=== PATIENT | male | born 1990 | race African-American/Black ===

== ENCOUNTER 2016-11-12 18:08 | Emergency (ER) | payer SELFPAY ==
[~2016-11-12] VITALS: Ht 180.3 cm; Wt 77.1 kg
[2016-11-12 18:08] VITALS: BP 141/90
[2016-11-12] MEDS ORDERED: DERMABOND TOPICAL SKIN ADHESIVE TOP ONE (19:15)
== END 2016-11-12 19:40 | disposition home or self-care (01) ==
LOC: M ED 19:09
DX: S01.01XA Laceration without foreign body of scalp, initial encounter (principal); W50.0XXA Accidental hit or strike by another person, initial encounter; Y92.830 Public park as the place of occurrence of the external cause; Y93.67 Activity, basketball; Y99.8 Other external cause status

== ENCOUNTER 2019-01-01 07:49 | Emergency (ER) | payer OTHER, SELFPAY ==
[~2019-01-01] VITALS: Ht 180.3 cm; Wt 86.8 kg
[2019-01-01] MEDS ORDERED: FLON1SPR NARES (07:57)
[2019-01-01] MEDS ORDERED: VENTAER INH (07:57)
[2019-01-01] MEDS ORDERED: SING10TA32 PO ×2 (07:57→08:17)
[2019-01-01] MEDS ORDERED: BENZ200C70 PO (08:17)
[2019-01-01] MEDS ORDERED: AUGM875T28 PO (08:17)
[2019-01-01] MEDS ORDERED: AFRI0.058 (08:17)
[2019-01-01] MEDS ORDERED: ALBU17IN2 INH (08:17)
[2019-01-01 08:43] VITALS: BP 136/78
== END 2019-01-01 08:51 | disposition home or self-care (01) ==
LOC: M ED 07:49
DX: J06.9 Acute upper respiratory infection, unspecified (principal); J30.2 Other seasonal allergic rhinitis; Z76.0 Encounter for issue of repeat prescription; J45.909 Unspecified asthma, uncomplicated; Z79.899 Other long term (current) drug therapy

== ENCOUNTER → 2021-01-31 | Outpatient (CLI) | payer OTHER ==
[~2021-01-31] MED LIST: AFRI0.058; AUGM875T28 PO; BENZ200C70 PO; FLON1SPR NARES; PROV108A INH; SING10TA32 PO; VENTAER INH
[2021-01-31 18:34] LABS: HIV 1&2 SCREEN CENTAUR NEGATIVE (NEGATIVE)
[2021-01-31 19:23] LABS: GC DNA AMPLIFICATION NEGATIVE (NEGATIVE)
== END ==
LOC: M LAB 15:10
PROVIDERS: ATTEND Family Medicine
DX: Z11.3 Encounter for screening for infections with a predominantly sexual mode of transmission (principal)

== ENCOUNTER 2021-02-07 20:42 | Emergency (ER) | payer OTHER ==
[~2021-02-07] VITALS: Ht 180.3 cm; Wt 81.8 kg
--- NOTE | 2021-02-07 22:09 | REPVR ---
PROCEDURE INFORMATION: Exam: XR Right Hand Exam date and time: 02/07/2021 9:11 PM Age: 30 years old Clinical indication: Pain; Hand; Right; Additional info: Fell hitting hand on wall TECHNIQUE: Imaging protocol: XR Right hand. Views: 3 or more views. COMPARISON: No relevant prior studies available. FINDINGS: Bones/joints: Bony structures are otherwise aligned normally. Degree of osseous mineralization is age-appropriate. Acute intra-articular fracture involving the base of the thumb metacarpal, ulnar aspect. No concerning osseous lesion. Joint spaces of the hand are well-maintained. Soft tissues: Soft tissue swelling at the base of the thumb. No evidence of soft tissue laceration or opaque foreign body. IMPRESSION: Acute comminuted intra-articular fracture through the base of the thumb metacarpal with overlying soft tissue swelling Electronically signed by: Adalid Han On 02/07/2021 22:09:09 PM
[2021-02-08] MEDS ORDERED: BOOSTRIX/ADACEL VACCINE (DIPHTH/PERTUSS/ACELL/TETANUS) 0.5ML SYR IM ONE (01:25)
[2021-02-08 01:58] VITALS: BP 159/84
== END 2021-02-08 02:10 | disposition home or self-care (01) ==
LOC: M ED 20:42
DX: S62.291A Other fracture of first metacarpal bone, right hand, initial encounter for closed fracture (principal); S80.211A Abrasion, right knee, initial encounter; W01.198A Fall on same level from slipping, tripping and stumbling with subsequent striking against other object, initial encounter; Y92.099 Unspecified place in other non-institutional residence as the place of occurrence of the external cause; Y93.9 Activity, unspecified; Y99.9 Unspecified external cause status; I10 Essential (primary) hypertension

== ENCOUNTER → 2021-04-07 | Outpatient (REF) | payer OTHER ==
[2021-04-07 14:02] LABS: SEMEN APPEARANCE OPAQUE (OPAQUE); SEMEN VISCOSITY LIQUID (LIQUID); SEMEN VOLUME 2.5 ml (2.0-5.0)
[2021-04-07 14:04] LABS: SPERM CONCENTRATION 89.2 M/ml (>=15.0); WBC CONCENTRATION <=1 M/ml (<=1 M/ml)
== END ==
LOC: M SMT 13:57
PROVIDERS: ATTEND Nurse Practitioner Family
DX: N46.9 Male infertility, unspecified (principal)

== ENCOUNTER → 2021-11-19 | Outpatient (REF) | payer OTHER ==
[2021-11-19 19:13] LABS: GC DNA AMPLIFICATION NEGATIVE (NEGATIVE)
== END ==
LOC: M LAB REF 17:10
PROVIDERS: ATTEND Physician Assistant Medical
DX: R30.0 Dysuria (principal)

== ENCOUNTER 2022-12-29 16:48 | Emergency (ER) | payer OTHER ==
[~2022-12-29] VITALS: Ht 180.3 cm; Wt 76.2 kg
[~2022-12-29 16:48] MED LIST changes: -AFRI0.058; +ALBU6.7H6 INH; +MONT-5 PO; +OXYM15SP2; -PROV108A INH; -SING10TA32 PO
[2022-12-29] MEDS ORDERED: IPRATROPIUM 0.5MG/ALBUTEROL 2.5MG INH SOL UD 3ML (DUONEB) NEB ONE (19:30)
[2022-12-29] MEDS ORDERED: predniSONE 20 MG TAB PO ONE (19:30)
[2022-12-29 19:50] LABS: RSV AMPLIFICATION NEGATIVE (NEGATIVE)
[2022-12-29] MEDS ORDERED: CETI10CA2 PO (21:13)
[2022-12-29] MEDS ORDERED: ALBU6.7H6 INH (21:13)
[2022-12-29] MEDS ORDERED: PRED20TA PO ×2 (21:13→21:18)
[2022-12-29 21:19] VITALS: BP 128/76; TEMP 98; O2SAT 100
== END 2022-12-29 21:22 | disposition home or self-care (01) ==
LOC: M ED 16:48
DX: J45.901 Unspecified asthma with (acute) exacerbation (principal); Z87.891 Personal history of nicotine dependence; Z91.013 Allergy to seafood
CPT/HCPCS: 71046; 87631; 94640; 99283; J7512

== ENCOUNTER 2023-01-16 05:21 | Emergency (ER) | payer OTHER ==
[~2023-01-16] VITALS: Ht 180.3 cm; Wt 75.8 kg
[~2023-01-16 05:21] MED LIST changes: +CETI10CA2 PO; +PRED20TA PO
[2023-01-16] MEDS ORDERED: ALBUTEROL SULFATE 2.5MG/0.5ML INH NEB SOLN INH ONE (05:40)
[2023-01-16] MEDS ORDERED: IPRATROPIUM 0.02% SOLN 0.5MG 2.5ML NEB INH ONE (05:40)
[2023-01-16] MEDS ORDERED: methylPREDNISolone 125MG 2ML VIAL IV ONE (05:40)
[2023-01-16 06:14] LABS: ABG BASE EXCESS -0.2 (-2.0-2.0); ABG HCO3 25.2 MMOL/L (22.0-26.0); ABG O2 SATURATION 98.6 % (95.0-99.0); ABG PARTIAL PRESSURE CO2 43.7 mmHg (35.0-45.0); ABG PARTIAL PRESSURE O2 128.8 mmHg (75.0-100.0); ABG STANDARD HCO3 24.4 MMOL/L. (22.0-26.0); ABG TOTAL CO2 26.6 MMOL/L (22.0-29.0); ABG pH (ARTERIAL) 7.379 UNITS (7.350-7.450)
[2023-01-16 07:00] VITALS: TEMP 97.6
[2023-01-16] MEDS ORDERED: PRED20TA PO (08:54)
[2023-01-16 09:04] VITALS: BP 131/74; O2SAT 96
== END 2023-01-16 09:10 | disposition home or self-care (01) ==
LOC: M ED 05:21
DX: J45.901 Unspecified asthma with (acute) exacerbation (principal); Z91.013 Allergy to seafood
CPT/HCPCS: 36600; 71045; 82803; 87486; 87581; 87633; 87798; 96374; 99284; J2930

== ENCOUNTER 2023-04-09 02:40 | Emergency (ER) | payer OTHER ==
[2023-04-09 02:41] VITALS: TEMP 97.3
[2023-04-09] MEDS: IPRATROPIUM 0.5MG/ALBUTEROL 2.5MG INH SOL UD 3ML (DUONEB) NEB SCH ×2 (03:19→03:20)
[2023-04-09] MEDS ORDERED: ALBUTEROL 90 MCG/ACT 8GM HFA INHALER INH ONE (03:45)
[2023-04-09] MEDS ORDERED: dexAMETHasone 20MG/5ML VIAL IV ONE (03:45)
[2023-04-09] MEDS ORDERED: PRED20TA PO (03:53)
[2023-04-09 04:59] VITALS: BP 139/88; O2SAT 98
== END 2023-04-09 05:02 | disposition home or self-care (01) ==
LOC: M ED 02:40
DX: J45.901 Unspecified asthma with (acute) exacerbation (principal); F10.10 Alcohol abuse, uncomplicated; Z79.52 Long term (current) use of systemic steroids; Z79.899 Other long term (current) drug therapy
CPT/HCPCS: 94640; 96374; 99284; J1100

== ENCOUNTER → 2023-06-01 | Outpatient (REF) | payer OTHER ==
[2023-06-01 12:49] LABS: BASO % 0.6 % (0.0-1.0); EOS # 0.2 10^3/uL (0.0-0.5); EOS % 5.5 % (0.0-3.0); HEMATOCRIT 46.7 % (42.0-52.0); HEMOGLOBIN 15.3 g/dl (13.5-17.5); LYMPH # 1.3 10^3/uL (1.5-5.0); LYMPH % 37.2 % (24.0-44.0); MEAN CORPUSCULAR HEMOGLOBIN 29.4 pg (27.0-33.0); MEAN CORPUSCULAR HGB CONC 32.8 g/dl (32.0-36.5); MEAN CORPUSCULAR VOLUME 89.6 fl (80.0-96.0); MONO # 0.4 10^3/uL (0.0-0.8); MONO % 10.8 % (2.0-8.0); NEUTROPHILS # 1.6 10^3/uL (1.5-8.5); NEUTROPHILS % 45.9 % (36.0-66.0); PLATELET COUNT, AUTOMATED 171 10^3/uL (150-450); RED BLOOD COUNT 5.21 10^6/uL (4.30-6.10); WHITE BLOOD COUNT 3.4 10^3/uL (4.0-10.0)
[2023-06-01 12:57] LABS: ALBUMIN 3.8 G/DL (3.2-5.2); ALKALINE PHOSPHATASE 65 U/L (46-116); ALT/SGPT 101 U/L (7.0-40); AST/SGOT 47 U/L (<34); BILIRUBIN,TOTAL 1.4 MG/DL (0.3-1.2); BLOOD UREA NITROGEN 16 MG/DL (9-23); CALCIUM LEVEL 9.2 MG/DL (8.5-10.1); CARBON DIOXIDE LEVEL 32 MMOL/L (20-31); CHLORIDE LEVEL 104 MMOL/L (98-107); CHOLESTEROL LEVEL 205 MG/DL (<200); CHOLESTEROL RISK RATIO 2.77 (<5); CREATININE FOR GFR 1.13 MG/DL (0.70-1.30); GLOMERULAR FILTRATION RATE > 60.0 (>60); GLUCOSE, FASTING 106 MG/DL (60-100); HDL CHOLESTEROL 73.9 MG/DL (>40); LDL CHOLESTEROL 110.1 MG/DL (<100); NON-HDL-C 131.1 MG/DL; POTASSIUM SERUM 4.3 MMOL/L (3.5-5.1); SODIUM LEVEL 140 MMOL/L (136-145); TRIGLYCERIDES LEVEL 105 MG/DL (<150)
[2023-06-01 12:59] LABS: THYROID STIMULATING HORMONE 1.558 uIU/ML (0.55-4.78)
[2023-06-01 13:01] LABS: TOTAL 25(OH) VITAMIN D 15.6 NG/ML (20.0-100.0)
[2023-06-01 13:21] LABS: HEMOGLOBIN A1c 5.2 % (4.0-6.0)
== END ==
LOC: M LAB REF 11:46
PROVIDERS: ATTEND Nurse Practitioner Family
DX: Z13.228 Encounter for screening for other metabolic disorders (principal)

== ENCOUNTER 2023-12-05 16:05 | Emergency (ER) | payer OTHER ==
[~2023-12-05] VITALS: Ht 180.3 cm; Wt 85.2 kg
[2023-12-05] MEDS: methylPREDNISolone 125MG 2ML VIAL IV ONE (18:27)
[2023-12-05] MEDS: MAG SULF 1GM/100ML (MAG RUN) 1 GM in IV 1 EA IV SCH (18:27)
[2023-12-05 18:48] LABS: BASO # 0.1 10^3/uL (0.0-0.2); BASO % 0.8 % (0.0-1.0); EOS # 0.7 10^3/uL (0.0-0.5); EOS % 10.9 % (0.0-3.0); HEMATOCRIT 48.6 % (42.0-52.0); HEMOGLOBIN 16.5 g/dl (13.5-17.5); LYMPH # 1.7 10^3/uL (1.5-5.0); LYMPH % 28.8 % (24.0-44.0); MEAN CORPUSCULAR HEMOGLOBIN 30.4 pg (27.0-33.0); MEAN CORPUSCULAR VOLUME 89.5 fl (80.0-96.0); MONO # 0.4 10^3/uL (0.0-0.8); MONO % 6.4 % (2.0-8.0); NEUTROPHILS # 3.2 10^3/uL (1.5-8.5); NEUTROPHILS % 53.1 % (36.0-66.0); PLATELET COUNT, AUTOMATED 224 10^3/uL (150-450); RED BLOOD COUNT 5.43 10^6/uL (4.30-6.10); WHITE BLOOD COUNT 6.1 10^3/uL (4.0-10.0)
[2023-12-05 19:06] LABS: BLOOD UREA NITROGEN 14 MG/DL (9-23); CALCIUM LEVEL 9.6 MG/DL (8.5-10.1); CARBON DIOXIDE LEVEL 30 MMOL/L (20-31); CHLORIDE LEVEL 103 MMOL/L (98-107); CREATININE FOR GFR 1.12 MG/DL (0.70-1.30); GLOMERULAR FILTRATION RATE > 60.0 (>60); GLUCOSE, FASTING 84 MG/DL (60-100); POTASSIUM SERUM 4.2 MMOL/L (3.5-5.1); SODIUM LEVEL 138 MMOL/L (136-145)
[2023-12-05] MEDS: IPRATROPIUM 0.5MG/ALBUTEROL 2.5MG INH SOL UD 3ML (DUONEB) NEB ONE (20:09)
[2023-12-05] MEDS ORDERED: ISOVUE-370 76% 100ML VIAL As Ordered ONE (20:29)
[2023-12-05 21:32] LABS: CK-MB VALUE MASS 1.5 NG/ML (<3.6)
[2023-12-05 21:36] LABS: CPK CREATINE PHOSPHOKINASE 286 U/L (46-171); MB/CK RELATIVE INDEX 0.52 (< OR =4)
[2023-12-05] MEDS ORDERED: VENTAER INH (21:43)
[2023-12-05] MEDS ORDERED: PRED20TA PO (21:43)
[2023-12-05 21:50] VITALS: BP 139/73; TEMP 97.8; O2SAT 95
== END 2023-12-05 21:51 | disposition home or self-care (01) ==
LOC: M ED 16:05
DX: J45.901 Unspecified asthma with (acute) exacerbation (principal); I45.19 Other right bundle-branch block; Z91.013 Allergy to seafood; Z79.52 Long term (current) use of systemic steroids
CPT/HCPCS: 71046; 71275; 80048; 82550; 82553; 84484; 85025; 87486; 87581; 87633; 87798; 93005; 94640; 96374; 96375; 99284; J2919; J3475; Q9967

== ENCOUNTER → 2024-09-15 | Outpatient (REF) | payer OTHER ==
[2024-09-15 18:11] LABS: ALBUMIN 3.8 G/DL (3.2-5.2); ALKALINE PHOSPHATASE 68 U/L (40-129); ALT/SGPT 28 U/L (7.0-40); AST/SGOT 26 U/L (<34); BILIRUBIN,TOTAL 1.2 MG/DL (0.3-1.2); BLOOD UREA NITROGEN 13 MG/DL (9-23); CALCIUM LEVEL 9.2 MG/DL (8.5-10.1); CARBON DIOXIDE LEVEL 31 MMOL/L (20-31); CHLORIDE LEVEL 105 MMOL/L (98-107); CHOLESTEROL LEVEL 203 MG/DL (<200); CHOLESTEROL RISK RATIO 3.16 (<5); CREATININE FOR GFR 1.18 MG/DL (0.70-1.30); GLOMERULAR FILTRATION RATE > 60.0 (>60); GLUCOSE, FASTING 107 MG/DL (60-100); HDL CHOLESTEROL 64.1 MG/DL (>40); LDL CHOLESTEROL 117.5 MG/DL (<100); MAGNESIUM LEVEL 1.9 MG/DL (1.8-2.4); NON-HDL-C 138.9 MG/DL; POTASSIUM SERUM 4.5 MMOL/L (3.5-5.1); SODIUM LEVEL 140 MMOL/L (136-145); TOTAL PROTEIN 7.2 G/DL (5.7-8.2); TRIGLYCERIDES LEVEL 107 MG/DL (<150)
[2024-09-15 18:13] LABS: BASO % 0.7 % (0.0-1.0); EOS # 0.1 10^3/uL (0.0-0.5); EOS % 4.5 % (0.0-3.0); HEMATOCRIT 46.9 % (42.0-52.0); HEMOGLOBIN 15.4 g/dl (13.5-17.5); LYMPH # 1.5 10^3/uL (1.5-5.0); LYMPH % 52.4 % (24.0-44.0); MEAN CORPUSCULAR HEMOGLOBIN 29.6 pg (27.0-33.0); MEAN CORPUSCULAR HGB CONC 32.8 g/dl (32.0-36.5); MEAN CORPUSCULAR VOLUME 90.2 fl (80.0-96.0); MONO # 0.3 10^3/uL (0.0-0.8); MONO % 10.4 % (2.0-8.0); PLATELET COUNT, AUTOMATED 198 10^3/uL (150-450); TOTAL 25(OH) VITAMIN D 27.2 NG/ML (20.0-100.0); WHITE BLOOD COUNT 2.9 10^3/uL (4.0-10.0)
[2024-09-15 18:14] LABS: THYROID STIMULATING HORMONE 0.871 uIU/ML (0.55-4.78)
[2024-09-15 18:15] LABS: NEUTROPHILS # 0.9 10^3/uL (1.5-8.5)
[2024-09-15 19:12] LABS: HEMOGLOBIN A1c 5.2 % (4.0-6.0)
== END ==
LOC: M LAB REF 16:36
PROVIDERS: ATTEND Nurse Practitioner Family
DX: E66.3 Overweight (principal); E55.9 Vitamin D deficiency, unspecified

== ENCOUNTER → 2024-10-21 | Outpatient (REF) | payer OTHER ==
[2024-10-21 14:46] LABS: BASO % 0.5 % (0.0-1.0); EOS # 0.3 10^3/uL (0.0-0.5); EOS % 7.4 % (0.0-3.0); HEMATOCRIT 47.8 % (42.0-52.0); HEMOGLOBIN 16.2 g/dl (13.5-17.5); LYMPH # 1.7 10^3/uL (1.5-5.0); LYMPH % 42.6 % (24.0-44.0); MEAN CORPUSCULAR HEMOGLOBIN 30.3 pg (27.0-33.0); MEAN CORPUSCULAR HGB CONC 33.9 g/dl (32.0-36.5); MEAN CORPUSCULAR VOLUME 89.5 fl (80.0-96.0); MONO # 0.5 10^3/uL (0.0-0.8); MONO % 11.5 % (2.0-8.0); NEUTROPHILS # 1.5 10^3/uL (1.5-8.5); PLATELET COUNT, AUTOMATED 188 10^3/uL (150-450); RED BLOOD COUNT 5.34 10^6/uL (4.30-6.10); WHITE BLOOD COUNT 3.9 10^3/uL (4.0-10.0)
== END ==
LOC: M SFHCADAM 09:07
PROVIDERS: ATTEND Family Medicine
DX: R79.89 Other specified abnormal findings of blood chemistry (principal)